=== PATIENT | female | born 1950 | race Caucasian/White ===

== ENCOUNTER → 2019-03-21 | Outpatient (CLI) | payer MEDICARE ==
[2019-03-21 11:15] LABS: Source, Urine Clean Catch
[2019-03-21 11:24] LABS: Appearance, Urine Clear (Clear); Bilirubin, Urine Neg (Neg); Blood, Urine Neg (Neg); Color, Urine Yellow (P-Yellow); Glucose Qualitative, Urine 4+ (Neg); Ketones, Urine Neg (Neg); Leukocyte Esterase, Urine Neg (Neg); Nitrite, Urine Neg (Neg); Protein, Urine Neg (Neg); Specific Gravity, Urine 1.015 (1.003-1.022); Urobilinogen, Urine NORM (Normal)
== END | disposition home or self-care (01) ==
LOC: LAB 09:45 → LAB SHORT 09:45
PROVIDERS: Family Medicine
DX: N39.0 Urinary tract infection, site not specified (principal); R93.41 Abnormal radiologic findings on diagnostic imaging of renal pelvis, ureter, or bladder
CPT/HCPCS: 81003; 87086

== ENCOUNTER 2021-01-26 06:59 | Day surgery (SDC) | payer MEDICARE ==
[~2021-01-26] VITALS: Ht 160 cm; Wt 64.0 kg
[2021-01-26] MEDS ORDERED: ATOR40TA PO (07:26)
[2021-01-26] MEDS ORDERED: LOSARTAN POTASS50 M1 PO (07:27)
[2021-01-26] MEDS ORDERED: LORA.5 PO (07:27)
[2021-01-26] MEDS ORDERED: METF500 PO (07:28)
[2021-01-26] MEDS ORDERED: OMEP20ER PO (07:28)
[2021-01-26] MEDS ORDERED: TRAZ50 PO (07:29)
[2021-01-26] MEDS ORDERED: TIZA4 PO (07:29)
[2021-01-26] MEDS ORDERED: Aspir 8181 MG PO (07:30)
[2021-01-26] MEDS ORDERED: METO50 PO (10:14)
--- NOTE | 2021-01-26 10:38 | NUR ---
DR GAVIRIA TO ROOM TO DISCUSS PLAN OF CARE. VSS. R ULNAR STABLE.
--- NOTE | 2021-01-26 11:45 | NUR ---
PT TR BAND FULLY DEFLATED. NO BLEEDING NOTED. VSS. NADN.
--- NOTE | 2021-01-26 12:31 | NUR ---
PT VERBALIZES UNDERSTANDING WRITTEN AND VERBAL INSTRUCTIONS. DENIES QUESTIONS. Rc BRANCH REMAINS STABLE. VSS. CALL LIGHT WITHIN REACH.
--- NOTE | 2021-01-26 13:05 | NUR ---
PT DRESSES SELF WITHOUT DIFF. TR BAND REMOVED. DOT DRESSING APPLIED WITH SPLINT AND SLING IN PLACE. PT IV DC'D. CATH INTACT. PRESSURE DSG APPLIED. PT DC TO HOME BY WC TO S/O.
== END 2021-01-26 13:05 | disposition home or self-care (01) ==
LOC: MHTC 06:59
PROC: B2111ZZ Fluoroscopy of Multiple Coronary Arteries using Low Osmolar Contrast (ICD-10-PCS; principal; 2021-01-26)
PROC: 4A023N7 Measurement of Cardiac Sampling and Pressure, Left Heart, Percutaneous Approach (ICD-10-PCS; principal; 2021-01-26)
DX: I25.119 Atherosclerotic heart disease of native coronary artery with unspecified angina pectoris (principal); I10 Essential (primary) hypertension; E11.9 Type 2 diabetes mellitus without complications; K21.9 Gastro-esophageal reflux disease without esophagitis; Z86.73 Personal history of transient ischemic attack (TIA), and cerebral infarction without residual deficits; Z88.2 Allergy status to sulfonamides; Z79.899 Other long term (current) drug therapy; Z79.84 Long term (current) use of oral hypoglycemic drugs
CPT/HCPCS: 82947; 85347; 93454; 93571; 93572; 99152; 99153; A9270; C1769; C1887; C1894; J1644; J2250; J3010; J7030; J7050; Q9967

== ENCOUNTER 2021-02-01 05:43 | Emergency (ER) | payer MEDICARE ==
[~2021-02-01] VITALS: Ht 160 cm; Wt 59.9 kg
[~2021-02-01 05:43] MED LIST: ATOR40TA PO; Aspir 8181 MG PO; LORA.5 PO; LOSARTAN POTASS50 M1 PO; METF500 PO; METO50 PO; OMEP20ER PO; TIZA4 PO; TRAZ50 PO
[2021-02-01 06:49] LABS: BASOPHILS ABSOLUTE AUTO 0.05 K/mm3 (0.00-0.23); BASOPHILS PERCENT AUTO 1 % (0-2); EOSINOPHILS ABSOLUTE AUTO 0.08 K/mm3 (0.00-0.68); EOSINOPHILS PERCENT AUTO 1 % (0-6); Hematocrit 37.3 % (33.0-51.0); Hemoglobin 13.1 g/dL (11.5-16.0); IMMATURE GRAN ABSOLUTE AUTO 0.03 K/mm3 (0.00-0.10); IMMATURE GRAN PERCENT AUTO 0 % (0-1); LYMPHOCYTES ABSOLUTE AUTO 1.67 K/mm3 (0.84-5.20); LYMPHOCYTES PERCENT AUTO 21 % (21-46); MONOCYTES ABSOLUTE AUTO 0.34 K/mm3 (0.16-1.47); MONOCYTES PERCENT AUTO 4 % (4-13); Mean Corpuscular HGB 30.5 pg (26.0-34.0); Mean Corpuscular HGB Conc 35.1 g/dL (31.5-36.5); Mean Corpuscular Volume 87 fL (80-100); Mean Platelet Volume 10.3 fL (9.1-12.4); NEUTROPHILS ABSOLUTE AUTO 5.83 K/mm3 (1.96-9.15); NEUTROPHILS PERCENT AUTO 73 % (41-73); Platelet Count 237 K/mm3 (150-400); RDW Coefficient Variation 12.1 % (11.7-14.2); RDW Standard Deviation 38.1 fL (35.1-46.3)
[2021-02-01 07:14] LABS: Alanine Aminotransfer (ALT/SGP 43 U/L (12-78); Albumin, Blood 3.7 g/dL (3.4-5.0); Albumin/Globulin Ratio 1.1 (0.8-1.8); Alk Phos 85 U/L (50-136); Anion Gap 5 mmol/L (6-16); Aspartate Aminotrans (AST/SGOT 16 U/L (12-37); Bilirubin, Total 0.6 mg/dL (0.1-1.0); Blood Urea Nitrogen 19 mg/dL (8-24); Bun/Creatinine Ratio 25.7 (12.0-20.0); CO2, Blood 26 mmol/L (21-32); Calcium, Blood 8.8 mg/dL (8.5-10.1); Chloride, Blood 104 mmol/L (98-108); Creatinine, Blood 0.74 mg/dL (0.40-1.00); Globulin, Blood 3.3 g/dL (2.2-4.0); Glomerular Filtration Rate >60 (60-); Glucose, Blood 276 mg/dL (70-99); Potassium, Blood 4.2 mmol/L (3.5-5.5); Sodium, Blood 135 mmol/L (136-145); Troponin I <0.015 ng/mL (0.000-0.040)
== END 2021-02-01 09:40 | disposition home or self-care (01) ==
LOC: ER 05:43
PROVIDERS: Emergency Medicine
DX: R07.9 Chest pain, unspecified (principal); M79.601 Pain in right arm; E78.00 Pure hypercholesterolemia, unspecified; I10 Essential (primary) hypertension; E11.9 Type 2 diabetes mellitus without complications; Z88.2 Allergy status to sulfonamides; Z79.84 Long term (current) use of oral hypoglycemic drugs; Z79.899 Other long term (current) drug therapy; Z79.82 Long term (current) use of aspirin
CPT/HCPCS: 36415; 80053; 84484; 85025; 93005; 93010; 93931; 93971; 96374; 96375; 99285-25; J2270; J2405